=== PATIENT | female | born 1990 | race Caucasian/White ===

== ENCOUNTER 2023-10-26 02:45 | Inpatient (IN) ==
[2023-10-26] MEDS ORDERED: Buffered Lidocaine 1% SYRIN 1 ml INTRADERM ONE (04:25)
[2023-10-26] MEDS ORDERED: Lidocaine 1% VIAL 10 MG/ML 30 ML VIAL INJ PRN (04:25)
[2023-10-26 05:12] LABS: Urine Benzodiazepine Screen None Detected (None Detect); Urine Cannabinoids Screen None Detected (None Detect); Urine Opiates Screen None Detected (None Detect)
[2023-10-26] MEDS: Oxytocin in LR 20,000 MILLI.UNIT/1,000 ML BAG IV SCH (08:18)
[2023-10-26] MEDS: Lactated Ringers 1000 ml BAG 1,000 ML IV SCH (08:20)
[2023-10-26 08:49] LABS: ABS Monocytes 0.4 10^3/uL (0.0-0.9); ABS Neutrophils 10.2 10^3/uL (1.5-7.6); Eosinophil % 0.1 %; Hematocrit 34.4 % (35-45); Hemoglobin 11.4 g/dL (11.5-14.3); Lymphocyte % 8.7 %; Mean Corpuscular Volume 81.8 fL (80-97); Mean Platelet Volume 8.4 fL (7.5-11.2); Platelet Count 251 10^3/uL (150-450); Red Blood Count 4.21 10^6/uL (3.63-4.92); Red Cell Distribution Width 14.6 % (12-17); White Blood Count 11.7 10^3/uL (3.8-11.8)
[2023-10-26] MEDS: OBEPIDURAL (200 ML) 200 ML EPIDURAL ONE (11:31)
[2023-10-26] MEDS ORDERED: Phenylephrine 40 mcg/mL 10mL (400mcg) SYRINGE IV PUSH PRN ×2 (11:44)
[2023-10-26] MEDS ORDERED: Sodium Citrate/Citric Acid LIQ 15 ML UDC PO PRN (11:44)
[2023-10-26 12:19] LABS: Urine Appearance Clear; Urine Bilirubin Negative (Negative); Urine Blood Negative (Negative); Urine Color Yellow; Urine Glucose Negative (Negative); Urine Ketones 4+ (Negative); Urine Nitrite Negative (Negative); Urine Protein 1+ (>=30 mg/dL) (Negative); Urine Urobilinogen Negative (Negative)
[2023-10-26 12:33] LABS: Urine Bacteria Absent /HPF (Absent); Urine Red Blood Cell 1+(3-5/hpf) /HPF (0-Trace); Urine Squamous Epithelial Cell Present /HPF (Absent); Urine White Blood Cell Trace(0-5/hpf) /HPF (0-Trace)
[2023-10-26] MEDS: LAMOTRIGINE 200 MG PO SCH (13:13)
[2023-10-26] MEDS: CMC:Lamotrigine XR 50 mg TAB (NF) PO SCH (13:13)
[2023-10-26] MEDS ORDERED: Glycerin ADULT 2.4 gm SUPP PR PRN (19:17)
[2023-10-26] MEDS ORDERED: Lactated Ringers 1000 ml BAG 1,000 ML IV SCH (20:00)
[2023-10-27] MEDS: Dibucaine 1% OINT 28.35 GM TUBE PR PRN (10:36)
[2023-10-27] MEDS: Witch Hazel PAD JAR TOPICAL PRN (10:36)
[2023-10-27 12:25] LABS: ABS Basophils 0.1 10^3/uL (0.0-0.1); ABS Lymphocytes 1.7 10^3/uL (1.0-4.8); ABS Monocytes 1.1 10^3/uL (0.0-0.9); ABS Neutrophils 12.9 10^3/uL (1.5-7.6); ABS Nucleated RBC 0.01 10^3/ul; Eosinophil % 0.3 %; Hematocrit 31.6 % (35-45); Hemoglobin 10.2 g/dL (11.5-14.3); Lymphocyte % 10.6 %; Mean Corpuscular Hemoglobin 26.6 pg (27-33); Mean Corpuscular Hgb Conc 32.4 g/dL (31-36); Mean Platelet Volume 8.1 fL (7.5-11.2); Platelet Count 228 10^3/uL (150-450); Red Blood Count 3.85 10^6/uL (3.63-4.92); Red Cell Distribution Width 14.8 % (12-17); White Blood Count 15.7 10^3/uL (3.8-11.8)
[2023-10-27] MEDS: Lactated Ringers 1000 ml BAG 1,000 ML IV ONE ×2 (14:09)
[2023-10-27] MEDS: Lidocaine 1.5% EPI 1:200,000 30 ML SDV ONE (14:09)
[2023-10-27] MEDS: Lidocaine 2% JELLY 6 ML Topical TOPICAL ONE (14:09)
[2023-10-27] MEDS: OBEPIDURAL (200 ML) 200 ML EPIDURAL SCH (14:09)
[2023-10-27] MEDS: Lactated Ringers 1000 ml BAG 1,000 ML IV SCH (14:09)
[2023-10-27] MEDS: Oxytocin in LR 20,000 MILLI.UNIT/1,000 ML BAG IV SCH (14:10)
[2023-10-28 19:55] VITALS: BP 124/73
== END 2023-10-28 23:45 | disposition home or self-care (01) | DRG 768 ==
LOC: MCHOBOUT 02:45 → MCHOB 04:25
PROVIDERS: ATTEND Advanced Practice Midwife